=== PATIENT | female | born 2000 | race Caucasian/White ===

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

== ENCOUNTER 2021-08-08 19:23 | Emergency (ER) | payer BC, MEDICAID, OTHER ==
[2021-08-08] MEDS ORDERED: IBUPROFEN 800 MG TABLET PO STA (20:28)
--- NOTE | 2021-08-08 20:29 | ED Physician Documentation ---
PD HPI LOWER EXT INJURY - Stated complaint Stated Complaint: RT ANKLE PX - Chief complaint Chief Complaint: Trauma Ext - History obtained from History obtained from: Patient (Fell down 2 stairs and heard a pop in the lateral right ankle and is now unable to walk. No other injuries.) Review of Systems Constitutional: reports: Reviewed and negative Ears: reports: Reviewed and negative Nose: reports: Reviewed and negative Throat: reports: Reviewed and negative Cardiac: reports: Reviewed and negative PD PAST MEDICAL HISTORY - Past Medical History Respiratory: Asthma, Pneumonia Neuro: Migraines - Past Surgical History Past Surgical History: Yes HEENT: Tonsil/Adenoidectomy - Present Medications Home Medications: Ambulatory Orders Medication Instructions Recorded Confirmed Bcp 1 tab PO DAILY 11/17/13 10/29/18 Butalb/Acetaminophen/Caffeine 1 - 2 each PO Q6HR PRN #14 capsule 10/29/18 [Fioricet 50-300-40 mg Capsule] Nitrofurantoin Monohyd/M-Cryst 100 mg PO BID #10 capsule 11/23/19 [Macrobid 100 mg Capsule] Phenazopyridine HCl [Pyridium] 200 mg PO TID PRN #6 tablet 11/23/19 - Allergies Allergies/Adverse Reactions: Allergies Allergy/AdvReac Type Severity Reaction Status Date / Time No Known Drug Allergies Allergy Verified 08/08/21 19:26 - Social History Does the pt smoke?: No Smoking Status: Never smoker Does the pt drink ETOH?: No Does the pt have substance abuse?: No - Immunizations Immunizations are current?: Yes - POLST Patient has POLST: No PD ED PE NORMAL - Vitals Vital signs reviewed: Yes - General General: Alert and oriented X 3, No acute distress - Extremities Extremities: Other (Tender over both malleoli of the right ankle, right worse than left without deformity. No foot or proximal fibular tenderness.) - Neuro Neuro: Alert and oriented X 3, Normal speech Results - Vitals Vitals: Vital Signs - 24 hr 08/08/21 08/08/21 19:26 21:11 Temperature 36.5 C 37.5 C Heart Rate 99 92 Respiratory 16 19 Rate Blood Pressure 150/90 H 131/84 H O2 Saturation 100 100 Oxygen O2 Source Room air - Rads (name of study) Three-view x-ray of the right ankle is unremarkable Radiology: EMP read contemporaneously Departure - Departure Disposition: Home, Self Care Clinical Impression: Right ankle sprain Qualifiers: Encounter type: initial encounter Involved ligament of ankle: anterior talofibular ligament Qualified Code(s): S93.491A - Sprain of other ligament of right ankle, initial encounter Condition: Good Record reviewed to determine appropriate education?: Yes Instructions: ED Sprain Ankle W X Ray Comments: Tylenol and/or ibuprofen as needed for pain. Keep it elevated. Return for new or worsening symptoms. Follow-up with your doctor in a week if not improving. Discharge Date/Time: 08/08/21 21:12
--- NOTE | 2021-08-08 20:40 | XRAY Report ---
PROCEDURE: Ankle 3 View RT INDICATIONS: Trauma TECHNIQUE: 3 views of the ankle were acquired. COMPARISON: None. FINDINGS: Bones: No fractures or dislocations. Ankle mortise is normally aligned. No suspicious bony lesions . Soft tissues: There is periarticular soft tissue swelling laterally. No tibiotalar joint effusion. Achilles tendon appears normal. IMPRESSION: 1. No fracture or dislocation. Reviewed by: Justice Henderson MD on 08/08/2021 8:38 PM PST Approved by: Justice Henderson MD on 08/08/2021 8:38 PM PST Station ID: [id number]
[2021-08-08 21:12] VITALS: BP 131/84
== END 2021-08-08 21:12 | disposition home or self-care (01) ==
LOC: ED 19:23
DX: S93.491A Sprain of other ligament of right ankle, initial encounter (principal); W10.9XXA Fall (on) (from) unspecified stairs and steps, initial encounter
CPT/HCPCS: 73610; 99282; 99283; A9270

== ENCOUNTER 2022-07-09 17:35 | Emergency (ER) | payer MEDICAID ==
[2022-07-09 17:42] VITALS: BP 144/74
--- NOTE | 2022-07-09 19:47 | ED Physician Documentation ---
PD HPI SKIN - Stated complaint Stated Complaint: ITCHY SKIN - Chief complaint Chief Complaint: Allergic Rx - History obtained from History obtained from: Patient - History of Present Illness Timing - duration: Weeks (few weeks) Timing - details: Gradual onset, Still present, Constant Pain level max: 0 Pain level now: 0 Location: Bodywide Quality / character: Itchy Improved by: Benadryl Associated symptoms: No: Fever, Myalgias, Joint pain, Headache, Facial swelling, Dyspnea, Abd pain, N/V/D, Urinary sx Contributing factors: No: Exposed to medication, Exposed to food, Exposed to soap / lotion, Exposed to Poison denise/oak, Insect bite /sting, Recent illness Similar symptoms before: No diagnosis Recently seen: Not recently seen Review of Systems Skin: reports: Rash PD PAST MEDICAL HISTORY - Past Medical History Respiratory: Asthma, Pneumonia Neuro: Migraines - Past Surgical History Past Surgical History: Yes HEENT: Tonsil/Adenoidectomy - Present Medications Home Medications: Ambulatory Orders Medication Instructions Recorded Confirmed Bcp 1 tab PO DAILY 11/17/13 10/29/18 Butalb/Acetaminophen/Caffeine 1 - 2 each PO Q6HR PRN #14 capsule 10/29/18 [Fioricet 50-300-40 mg Capsule] Nitrofurantoin Monohyd/M-Cryst 100 mg PO BID #10 capsule 11/23/19 [Macrobid 100 mg Capsule] Phenazopyridine HCl [Pyridium] 200 mg PO TID PRN #6 tablet 11/23/19 Triamcinolone 0.1% Oint 1 applic TOP BID #80 gm 07/09/22 - Allergies Allergies/Adverse Reactions: Allergies Allergy/AdvReac Type Severity Reaction Status Date / Time No Known Drug Allergies Allergy Verified 07/09/22 17:42 - Social History Does the pt smoke?: No Smoking Status: Never smoker Does the pt drink ETOH?: No Does the pt have substance abuse?: No - Immunizations Immunizations are current?: Yes - POLST Patient has POLST: No PD ED PE NORMAL - Vitals Vital signs reviewed: Yes - General General: Alert and oriented X 3, No acute distress, Well developed/nourished - HEENT HEENT: Atraumatic, PERRL, EOMI - Neck Neck: Supple, no meningeal sign - Derm Derm: Normal color, Warm and dry, Other (fine miliary rash evident on shoulders and abdomen with mild excoriations) Results - Vitals Vitals: Vital Signs - 24 hr 07/09/22 17:39 Temperature 36.2 C L Heart Rate 108 H Respiratory 19 Rate Blood Pressure 144/74 H O2 Saturation 98 Oxygen O2 Source Room air PD Medical Decision Making - ED course ED course: 22yF p/w mild rash, likely contact dermatitis. also with scaling to ears c/w ectopic dermatitis. steroid sent to pharmacy. plan to f/u derm and allergy/immunology. return precuations given. Departure - Departure Disposition: Home, Self Care Clinical Impression: Skin irritation Condition: Good Instructions: ED Dermatitis Non Specific Rash Follow-Up: PRITESH PEÑA MD [Physician No Access] - Himanshu Alexander MD [Physician No Access] - Rebecca Walton PA-C [Provider Admit Priv/Credential] - Prescriptions: Triamcinolone 0.1% Oint 1 applic TOP BID #80 gm Comments: You were seen in the emergency department for full body itching. Please apply steroid cream no more than twice daily and only apply to the face once daily for 5 days. Return to the emergency department if new or worsening symptoms or other concerns. Follow-up with the primary care provider and with dermatology or allergy and immunology. Prescription was sent to [facility] electronically. Discharge Date/Time: 07/09/22 20:16
== END 2022-07-09 20:16 | disposition home or self-care (01) ==
LOC: ED 17:35
DX: L29.9 Pruritus, unspecified (principal); R21 Rash and other nonspecific skin eruption
CPT/HCPCS: 99282

== ENCOUNTER 2022-07-24 08:00 | Outpatient (CLI) | payer MEDICAID ==
[2022-07-24 17:41] LABS: BASOPHILS # (AUTO) 0.1 10^3/uL (0.0-0.1); BASOPHILS % (AUTO) 0.6 %; EOSINOPHILS # (AUTO) 0.2 10^3/uL (0.0-0.7); EOSINOPHILS % (AUTO) 2.3 %; HCT - HEMATOCRIT 45.4 % (37.0-47.0); HGB - HEMOGLOBIN 14.5 g/dL (12.0-16.0); LYMPHOCYTES # (AUTO) 2.9 10^3/uL (1.5-3.5); LYMPHOCYTES % (AUTO) 29.3 %; MEAN CORPUSCULAR HGB CONC 31.9 g/dL (32.0-36.0); MEAN CORPUSCULAR VOLUME 90.8 fL (81.0-99.0); MEAN PLATELET VOLUME 11.1 fL (7.9-10.8); MONOCYTES # (AUTO) 0.8 10^3/uL (0.0-1.0); MONOCYTES % (AUTO) 7.9 %; NEUTROPHILS % (AUTO) 59.5 %; PLT - PLATELET COUNT 308 10^3/uL (130-450); RED CELL DISTRIBUTION WIDTH 12.4 % (12.0-15.0); WHITE BLOOD COUNT 10.1 x10^3/uL (4.8-10.8)
== END 2022-07-24 23:59 | disposition home or self-care (01) ==
LOC: LAB.N 08:00
PROVIDERS: ATTEND Physician Assistant
DX: L29.9 Pruritus, unspecified (principal)
CPT/HCPCS: 36415; 85025

== ENCOUNTER 2023-02-27 19:44 | Emergency (ER) | payer MEDICAID ==
[2023-02-27 20:13] VITALS: O2SAT 99
[2023-02-27] MEDS ORDERED: LORazepam 1 MG TABLET PO STA (20:38)
--- NOTE | 2023-02-27 20:40 | ED Physician Documentation ---
History of Present Illness - Stated complaint Stated Complaint: CHEST PX,SOA - Chief complaint Chief Complaint: MHE - Additonal information Additional information: 22-year-old female presents emergency department for evaluation of anxiety, pa lpitations and chest discomfort. Patient states that she is having a lot of arguments with her baby's father and he is making her life difficult. They do not live together. She has been having increased stress and palpitations due to this. She is usually able to calm herself down by going to a calm quiet room but was unable to get the racing thoughts and palpitations to zakia today. She has called [facility] and has a screening appointment upcoming. She takes no prescribed medications. Denies pleuritic chest pain. Pain does not radiate. No perioral numbness or tingling. No recent travel, anticoagulation. She is not on any hormones. Review of Systems Constitutional: denies: Fever, Chills Throat: reports: Reviewed and negative Cardiac: reports: Chest pain / pressure, Palpitations Respiratory: reports: Reviewed and negative GI: reports: Reviewed and negative : reports: Reviewed and negative PD PAST MEDICAL HISTORY - Past Medical History Respiratory: Asthma, Pneumonia Neuro: Migraines - Past Surgical History Past Surgical History: Yes HEENT: Tonsil/Adenoidectomy - Present Medications Home Medications: Ambulatory Orders Medication Instructions Recorded Confirmed hydrOXYzine PAMOATE [Vistaril] 25 mg PO TID PRN #20 cap 02/27/23 - Allergies Allergies/Adverse Reactions: Allergies Allergy/AdvReac Type Severity Reaction Status Date / Time No Known Drug Allergies Allergy Verified 02/27/23 19:54 - Social History Does the pt smoke?: No Smoking Status: Never smoker Does the pt drink ETOH?: No Does the pt have substance abuse?: No - Immunizations Immunizations are current?: Yes - POLST Patient has POLST: No PD ED PE NORMAL - General General: Alert and oriented X 3, No acute distress - HEENT HEENT: Atraumatic - Neck Neck: Supple, no meningeal sign - Cardiac Cardiac: RRR, No murmur, Other (Sinus rhythm on the monitor heart rate of 95) - Respiratory Respiratory: No respiratory distress, Clear bilaterally - Abdomen Abdomen: Normal bowel sounds, Soft - Back Back: No CVA TTP - Derm Derm: Normal color, Warm and dry - Extremities Extremities: No deformity - Neuro Neuro: Alert and oriented 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 Relevant findings are: Rate: Rate (enter#) (100) Rhythm: NSR [place]: Normal Intervals: Normal [place] QRS: Normal Ischemia: Normal ST segments Compare to prior EKG: Old EKG unavailable Computer interpretation: Agree with computer - Labs Labs: Laboratory Tests 02/27/23 02/27/23 02/27/23 20:32 20:32 20:32 WBC 5.4 RBC 4.57 Hgb 13.1 Hct 41.3 MCV 90.4 MCH 28.7 MCHC 31.7 L RDW 13.1 Plt Count 228 MPV 10.5 Neut # (Auto) 3.0 Lymph # (Auto) 1.4 L [place] # (Auto) 0.7 Eos # (Auto) 0.1 Baso # (Auto) 0.0 Absolute Nucleated RBC 0.00 Nucleated RBC % 0.0 Sodium 140 Potassium 3.6 Chloride 108 Carbon Dioxide 27 Anion Gap 5.0 L BUN 14 Creatinine 0.7 Estimated GFR (MDRD) 105 Glucose 100 Calcium 9.1 Total Bilirubin 0.3 AST 13 ALT 13 Alkaline Phosphatase 34 L Troponin I High Sens < 2.3 L Total Protein 6.7 Albumin 4.2 Globulin 2.5 Albumin/Globulin Ratio 1.7 Lipase 14 Serum HCG, Qual NEGATIVE - Rads (name of study) cxr Relevant Findings:: EMP independent interpretation of test (No findings of pneumonia, pneumothorax pleural effusion. Unremarkable cardiopulmonary exam) PD Medical Decision Making - ED course Complexity details: reviewed results, re-evaluated patient, considered differential, d/w patient ED course: 22-year-old female presents emergency department for evaluation of anxiety, palpitations and chest pain. She does report that she was having an argument with her baby's dad when she began to have a panic attack that she could not calm. On presentation to the emergency department much of the symptoms had d issipated. She was given a single dose of Ativan orally which markedly improved the anxiety and palpitations. Her EKG while on the monitor showed sinus rhythm without tachyarrhythmia. Her twelve-lead was without ischemic findings. CBC, electrolytes and troponin were all negative. ACS is essentially ruled out given age and history. She is PERC negative I have low suspicion for PE. Chest x-ray per my interpretation was without findings of pneumothorax, pneumonia or pleural effusion. On reevaluation the patient is feeling markedly better. She is scheduled to follow-up with [facility] for a screening evaluation. We also discussed talk therapy. Limited prescription for hydroxyzine is being sent to the patient's preferred pharmacy. The usual emergent return precautions for worsen ing symptoms was discussed. Departure - Departure Disposition: Home, Self Care Clinical Impression: Panic attack, Palpitations Chest pain Qualifiers: Chest pain type: unspecified Qualified Code(s): R07.9 - Chest pain, unspecified Condition: Stable Record reviewed to determine appropriate education?: Yes Instructions: ED Panic Attack Prescriptions: hydrOXYzine PAMOATE [Vistaril] 25 mg PO TID PRN #20 cap PRN Reason: Anxiety Comments: Ela you are seen today in the emergency department for chest pain palpitations and anxiety. It sounds like he likely had a panic attack at home. Your labs today were essentially normal. Your EKG was also normal. Chest x-ray did not show any signs of pneumonia or a collapsed lung. I recommend that you continue your follow-up with [facility]. Talk therapy is very effective at helping manage anxiety and stress. Medications can also be helpful. For acute anxiety I have prescribed some hydroxyzine. This is a medication that can be used 2-3 times a day as needed. Use it cautiously at first as it may make you sleepy. Continue follow-up with your primary care doctor. Return to the ER for any new or worsening symptoms. Forms: PCP List
[2023-02-27 20:50] LABS: BASOPHILS % (AUTO) 0.4 %; EOSINOPHILS # (AUTO) 0.1 10^3/uL (0.0-0.7); EOSINOPHILS % (AUTO) 2.6 %; HCT - HEMATOCRIT 41.3 % (37.0-47.0); HGB - HEMOGLOBIN 13.1 g/dL (12.0-16.0); LYMPHOCYTES # (AUTO) 1.4 10^3/uL (1.5-3.5); MEAN CORPUSCULAR HEMOGLOBIN 28.7 pg (27.0-31.0); MEAN CORPUSCULAR HGB CONC 31.7 g/dL (32.0-36.0); MEAN CORPUSCULAR VOLUME 90.4 fL (81.0-99.0); MEAN PLATELET VOLUME 10.5 fL (7.9-10.8); MONOCYTES # (AUTO) 0.7 10^3/uL (0.0-1.0); MONOCYTES % (AUTO) 13.8 %; NEUTROPHILS % (AUTO) 56.8 %; PLT - PLATELET COUNT 228 10^3/uL (130-450); RED BLOOD COUNT 4.57 10^6/uL (4.20-5.40); RED CELL DISTRIBUTION WIDTH 13.1 % (12.0-15.0); WHITE BLOOD COUNT 5.4 x10^3/uL (4.8-10.8)
[2023-02-27 21:10] LABS: ALBUMIN 4.2 g/dL (3.2-5.5); ALBUMIN/GLOBULIN RATIO 1.7 (1.0-2.2); ALKALINE PHOSPHATASE 34 IU/L (42-121); ALT ALANINE AMINOTRANSFERASE 13 IU/L (10-60); AST ASPARTATE AMINOTRANSFERASE 13 IU/L (10-42); BILIRUBIN,TOTAL 0.3 mg/dL (0.2-1.0); BUN - BLOOD UREA NITROGEN 14 mg/dL (6-20); CALCIUM 9.1 mg/dL (8.5-10.3); CARBON DIOXIDE - CO2 27 mmol/L (21-32); CHLORIDE 108 mmol/L (101-111); CREATININE 0.7 mg/dL (0.6-1.3); GFR - MDRD 105 (>89); GLUCOSE 100 mg/dL (74-104); LIPASE 14 U/L (11-82); POTASSIUM 3.6 mmol/L (3.5-4.5); SODIUM 140 mmol/L (135-145); TOTAL PROTEIN 6.7 g/dL (6.4-8.9)
[2023-02-27 21:14] LABS: TROPONIN I HIGH SENSITIVITY < 2.3 ng/L (2.3-14.8)
[2023-02-27 21:15] LABS: HCG,QUALITATIVE BLOOD NEGATIVE
[2023-02-27 21:48] VITALS: BP 125/80
--- NOTE | 2023-02-27 22:36 | XRAY Report ---
PROCEDURE: Chest 1 View X-Ray INDICATIONS: chest pain TECHNIQUE: One view of the chest was acquired. COMPARISON: 09/28/2016. FINDINGS: Surgical changes and devices: None. Lungs and pleura: No pleural effusions or pneumothorax. Lungs are clear. Mediastinum: Mediastinal contours appear normal. Heart size is normal. Bones and chest wall: No suspicious bony lesions. Overlying soft tissues appear unremarkable. IMPRESSION: No acute cardiopulmonary disease. Reviewed by: Justice Mora MD on 02/27/2023 10:34 PM PDT Approved by: Justice Mora MD on 02/27/2023 10:34 PM PDT Station ID: [id number]
== END 2023-02-27 21:47 | disposition home or self-care (01) ==
LOC: ED 19:44
DX: R00.2 Palpitations (principal); F41.0 Panic disorder [episodic paroxysmal anxiety]; R07.9 Chest pain, unspecified
CPT/HCPCS: 36415; 71045; 80053; 83690; 84484; 84703; 85025; 93005; 99284; J8499

== ENCOUNTER 2023-05-17 08:00 | Outpatient (CLI) | payer MEDICAID ==
[2023-05-17 15:56] LABS: BILIRUBIN,URINE NEGATIVE (NEGATIVE); GLUCOSE, URINE (UA) NEGATIVE (NEGATIVE); KETONES,URINE (UA) NEGATIVE (NEGATIVE); LEUKOCYTE ESTERASE, URINE NEGATIVE (NEGATIVE); NITRITE,URINE NEGATIVE (NEGATIVE); OCCULT BLOOD,URINE NEGATIVE (NEGATIVE); PH,URINE 6.5 PH (5.0-7.5); PROTEIN,URINE NEGATIVE (NEGATIVE); UROBILINOGEN,URINE 0.2 (NORMAL) E.U./dL (NORMAL)
[2023-05-17 16:19] LABS: BACTERIA,URINE None Seen /HPF (None Seen); CLARITY,URINE CLEAR (CLEAR); RBC,URINE None Seen /HPF (0-5); SQUAMOUS EPITHELIAL CELL,UR RARE Squamous (<= Few); WBC,URINE 0-3 /HPF (0-5)
== END 2023-05-17 23:59 | disposition home or self-care (01) ==
LOC: LAB.WC 08:00
PROVIDERS: ATTEND Nurse Practitioner
DX: Z34.80 Encounter for supervision of other normal pregnancy, unspecified trimester (principal)
CPT/HCPCS: 81001; 87086

== ENCOUNTER 2023-05-31 10:44 | Outpatient (CLI) | payer MEDICAID ==
--- NOTE | 2023-05-31 13:05 | Ultrasound Report ---
PROCEDURE: OB First Trimester INDICATIONS: POSITIVE TEST OUTSIDE/PRIOR DATING DATA: Last menstrual period (LMP): 04/04/2023. LMP-based estimated date of delivery ([place]): 01/09/2024. First dating scan (date and location): 05/31/2023. Estimated date of delivery ([place]) from first dating scan: 01/16/2024. TECHNIQUE: Real-time scanning was performed of the fetus and maternal pelvic organs, with image documentation. COMPARISON: None. FINDINGS: Intrauterine gestational sac present. Embryo: Yolk sac and pole are seen. Met[place]ius-rump length is 1.1 cm, consistent with an estimated gestational age of 7 weeks 1 day Heart rate: 148 bpm. Other: No perigestational fluid collection. Measurement variability in dating: +/- 4 weeks by LMP, +/- 7 days by mean sac diameter (use before 6 weeks gestation if crown-rump length not able to be measured), +/- 5 days by crown-rump length (6-12 weeks gestation). Maternal organs: Ovaries appear within normal limits. Left ovarian corpus luteum cyst is noted. IMPRESSION: Single live intrauterine with estimated gestational age of 7 weeks 1 day, corresponding to an ultrasound [place] of 01/16/2024. Reviewed by: Lenny De La Cruz MD on 05/31/2023 1:04 PM PST Approved by: Lenny De La Cruz MD on 05/31/2023 1:04 PM PST Station ID: [id number]
== END 2023-05-31 10:45 | disposition home or self-care (01) ==
LOC: DI 10:44
PROVIDERS: ATTEND Nurse Practitioner
DX: Z34.81 Encounter for supervision of other normal pregnancy, first trimester (principal)

== ENCOUNTER 2023-06-14 08:00 | Outpatient (CLI) | payer MEDICAID ==
[2023-06-14 20:16] LABS: CHLAMYDIA TRACHOMATIS DNA NEGATIVE (NEGATIVE); NEISSERIA GONORRHOEAE DNA NEGATIVE (NEGATIVE); TRICHOMONAS VAGINALIS DNA NEGATIVE (NEGATIVE)
== END 2023-06-14 23:59 | disposition home or self-care (01) ==
LOC: LAB.WC 08:00
PROVIDERS: ATTEND Obstetrics & Gynecology
DX: Z11.3 Encounter for screening for infections with a predominantly sexual mode of transmission (principal)
CPT/HCPCS: 87491; 87591; 87661

== ENCOUNTER 2023-06-15 08:25 | Outpatient (CLI) | payer MEDICAID ==
[2023-06-15 09:58] LABS: BASOPHILS % (AUTO) 0.3 %; EOSINOPHILS # (AUTO) 0.1 10^3/uL (0.0-0.7); EOSINOPHILS % (AUTO) 0.9 %; HCT - HEMATOCRIT 40.2 % (37.0-47.0); LYMPHOCYTES # (AUTO) 2.2 10^3/uL (1.5-3.5); LYMPHOCYTES % (AUTO) 18.1 %; MEAN CORPUSCULAR HEMOGLOBIN 29.1 pg (27.0-31.0); MEAN CORPUSCULAR HGB CONC 32.3 g/dL (32.0-36.0); MEAN CORPUSCULAR VOLUME 90.1 fL (81.0-99.0); MEAN PLATELET VOLUME 10.4 fL (7.9-10.8); MONOCYTES # (AUTO) 0.7 10^3/uL (0.0-1.0); MONOCYTES % (AUTO) 5.6 %; NEUTROPHILS # (AUTO) 8.9 10^3/uL (1.5-6.6); NEUTROPHILS % (AUTO) 74.8 %; PLT - PLATELET COUNT 278 10^3/uL (130-450); RED BLOOD COUNT 4.46 10^6/uL (4.20-5.40); RED CELL DISTRIBUTION WIDTH 12.5 % (12.0-15.0); WHITE BLOOD COUNT 11.9 x10^3/uL (4.8-10.8)
[2023-06-16 06:09] LABS: HBsAG SCREEN Negative (Negative)
[2023-06-16 07:09] LABS: HCV AB Non Reactive (Non Reactive); HIV SCREEN 4TH GENERATION Non Reactive (Non Reactive)
[2023-06-16 08:09] LABS: RPR Non Reactive (Non Reactive)
[2023-06-16 09:09] LABS: VARICELLA-ZOSTER AB IGG 627 index (Immune >165)
== END 2023-06-15 08:26 | disposition home or self-care (01) ==
LOC: LAB 08:25
PROVIDERS: ATTEND Nurse Practitioner
DX: Z34.80 Encounter for supervision of other normal pregnancy, unspecified trimester (principal); Z36.89 Encounter for other specified antenatal screening; Z86.32 Personal history of gestational diabetes
CPT/HCPCS: 36415; 82950; 85025; 86592; 86762; 86787; 86803; 86850; 86900; 86901; 87340; 87389

== ENCOUNTER 2023-06-29 07:51 | Outpatient (CLI) | payer MEDICAID ==
[2023-06-29 08:23] LABS: GTT GLUCOSE,FASTING 108 mg/dL (74-109)
== END 2023-06-29 07:52 | disposition home or self-care (01) ==
LOC: LAB 07:51
PROVIDERS: ATTEND Obstetrics & Gynecology
DX: R73.02 Impaired glucose tolerance (oral) (principal)
CPT/HCPCS: 36415; 82951; 82952

== ENCOUNTER 2023-08-10 09:31 | Outpatient (CLI) | payer MEDICAID ==
[2023-08-10 10:15] LABS: ESTIMATED AVERAGE GLUCOSE 100 mg/dL (70-100); HEMOGLOBIN A1c% 5.1 % (4.27-6.07)
== END 2023-08-10 09:32 | disposition home or self-care (01) ==
LOC: LAB 09:31
PROVIDERS: ATTEND Obstetrics & Gynecology
DX: Z86.32 Personal history of gestational diabetes (principal); Z82.79 Family history of other congenital malformations, deformations and chromosomal abnormalities
CPT/HCPCS: 36415; 83036

== ENCOUNTER 2023-08-27 18:56 | Emergency (ER) | payer MEDICAID ==
--- NOTE | 2023-08-27 19:18 | ED Physician Documentation ---
History of Present Illness - Stated complaint Stated Complaint: DIZZY/HIGH HR - Chief complaint Chief Complaint: Cardiac - History obtained from History obtained from: Patient - Additonal information Additional information: G2, P1 at 19 weeks gestation on metformin for gestational diabetes developed rapid painless palpitations earlier today and lightheadedness with some fatigue. No associated chest pain or trouble breathing. She did drink some caffeine but not excessively she does not think. PD PAST MEDICAL HISTORY - Past Medical History Past Medical History: Yes Respiratory: Asthma, Pneumonia Neuro: Migraines Other Past Medical History: preeclampsia and GDM - Past Surgical History Past Surgical History: Yes HEENT: Tonsil/Adenoidectomy - Present Medications Home Medications: Ambulatory Orders Medication Instructions Recorded Confirmed metFORMIN [Glucophage] 500 mg PO BIDWM 08/27/23 08/27/23 - Allergies Allergies/Adverse Reactions: Allergies Allergy/AdvReac Type Severity Reaction Status Date / Time No Known Drug Allergies Allergy Verified 08/27/23 19:07 - Social History Does the pt smoke?: No Smoking Status: Never smoker Does the pt drink ETOH?: No Does the pt have substance abuse?: No - Immunizations Immunizations are current?: Yes - POLST Patient has POLST: No PD ED PE NORMAL - Vitals Vital signs reviewed: Yes - General General: Alert and oriented X 3, No acute distress - Cardiac Cardiac: RRR, No murmur - Respiratory Respiratory: No respiratory distress - Abdomen Abdomen: Normal bowel sounds, Soft, Non tender, Other (Gravid uterus, bedside ultrasound showing single live IUP with heart rate of 155 and positive motion.) - Extremities Extremities: No edema, No calf tenderness / cord - Neuro Neuro: Alert and oriented X 3, Normal speech Results - Vitals Vitals: Vital Signs - 24 hr 08/27/23 08/27/23 08/27/23 19:02 19:35 20:04 Temperature 36 C L Heart Rate 104 H 87 79 Respiratory 16 18 19 Rate Blood Pressure 133/80 H 114/56 L 114/54 L O2 Saturation 98 98 97 Oxygen O2 Source Room air - EKG (time done) 1909 EKG releavant findings:: EKG personally interpreted by author of this note. Relevant findings are: Rate: Rate (enter#) (92) Rhythm: NSR [place]: Normal Intervals: Normal [place] QRS: Normal Ischemia: Normal ST segments - Labs Labs: Laboratory Tests 08/27/23 08/27/23 08/27/23 19:30 19:30 19:30 WBC 13.7 H RBC 4.18 L Hgb 12.1 Hct 37.2 MCV 89.0 MCH 28.9 MCHC 32.5 RDW 12.4 Plt Count 278 MPV 10.8 Neut # (Auto) 9.8 H Lymph # (Auto) 2.9 [place] # (Auto) 0.8 Eos # (Auto) 0.2 Baso # (Auto) 0.0 Absolute Nucleated RBC 0.00 Nucleated RBC % 0.0 VBG pH 7.413 H VBG pCO2 38.2 L VBG pO2 58.0 H VBG HCO3 23.8 VBG Total CO2 25.0 VBG O2 Saturation 89.5 H VBG Base Excess -0.5 Sodium 137 Potassium 3.4 L Chloride 105 Carbon Dioxide 23 Anion Gap 9.0 BUN 9 Creatinine 0.6 Estimated GFR (MDRD) 124 Glucose 99 Calcium 9.8 Magnesium 1.6 L Total Bilirubin 0.3 AST 13 ALT 13 Alkaline Phosphatase 26 L Total Protein 6.5 Albumin 3.9 Globulin 2.6 Albumin/Globulin Ratio 1.5 Urine Color Urine Clarity Urine pH Ur Specific [place] Urine Protein Urine Glucose (UA) Urine Ketones Urine Occult Blood Urine Nitrite Urine Bilirubin Urine Urobilinogen Ur Leukocyte Esterase Ur Microscopic Review Urine Culture Comments Serum Ketones SMALL H 08/27/23 20:02 WBC RBC Hgb Hct MCV MCH MCHC RDW Plt Count MPV Neut # (Auto) Lymph # (Auto) [place] # (Auto) Eos # (Auto) Baso # (Auto) Absolute Nucleated RBC Nucleated RBC % VBG pH VBG pCO2 VBG pO2 VBG HCO3 VBG Total CO2 VBG O2 Saturation VBG Base Excess Sodium Potassium Chloride Carbon Dioxide Anion Gap BUN Creatinine Estimated GFR (MDRD) Glucose Calcium Magnesium Total Bilirubin AST ALT Alkaline Phosphatase Total Protein Albumin Globulin Albumin/Globulin Ratio Urine Color LIGHT YELLOW Urine Clarity CLEAR Urine pH 7.0 Ur Specific [place] <=1.005 Urine Protein NEGATIVE Urine Glucose (UA) NEGATIVE Urine Ketones NEGATIVE Urine Occult Blood NEGATIVE Urine Nitrite NEGATIVE Urine Bilirubin NEGATIVE Urine Urobilinogen 0.2 (NORMAL) Ur Leukocyte Esterase NEGATIVE Ur Microscopic Review NOT INDICATED Urine Culture Comments NOT INDICATED Serum Ketones PD Medical Decision Making - ED course ED course: 23-year-old G2, P1 at 19 weeks gestation presents with palpitations. No chest pain. Workup in the emergency department demonstrates a CBC with leukocytosis which is normal for , unremarkable venous gas, CMP showing mild hypokalemia and hypomagnesemia and she was given IV magnesium here. Urinalysis was unremarkable. She does have small serum ketones consistent with dehydration. She was feeling better after administration of IV fluids and IV magnesium. EKG was normal. Departure - Departure Disposition: 01 Home, Self Care Clinical Impression: Palpitations, Dehydration, 19 weeks gestation of Condition: Good Record reviewed to determine appropriate education?: Yes Instructions: ED Dehydration Comments: During plenty of fluids and try to decrease caffeine use if you are using it excessively. Follow-up with your OB in a week for reevaluation. Return for new or worsening symptoms. Forms: PCP List
[2023-08-27 19:35] LABS: BASOPHILS % (AUTO) 0.2 %; EOSINOPHILS # (AUTO) 0.2 10^3/uL (0.0-0.7); EOSINOPHILS % (AUTO) 1.3 %; HCT - HEMATOCRIT 37.2 % (37.0-47.0); HGB - HEMOGLOBIN 12.1 g/dL (12.0-16.0); LYMPHOCYTES # (AUTO) 2.9 10^3/uL (1.5-3.5); LYMPHOCYTES % (AUTO) 20.9 %; MEAN CORPUSCULAR HEMOGLOBIN 28.9 pg (27.0-31.0); MEAN CORPUSCULAR HGB CONC 32.5 g/dL (32.0-36.0); MEAN PLATELET VOLUME 10.8 fL (7.9-10.8); MONOCYTES # (AUTO) 0.8 10^3/uL (0.0-1.0); MONOCYTES % (AUTO) 5.7 %; NEUTROPHILS # (AUTO) 9.8 10^3/uL (1.5-6.6); NEUTROPHILS % (AUTO) 71.5 %; PLT - PLATELET COUNT 278 10^3/uL (130-450); RED BLOOD COUNT 4.18 10^6/uL (4.20-5.40); RED CELL DISTRIBUTION WIDTH 12.4 % (12.0-15.0); WHITE BLOOD COUNT 13.7 x10^3/uL (4.8-10.8)
[2023-08-27] MEDS: SODIUM CHLORIDE 0.9% 1,000 ML IV STA (19:35)
[2023-08-27 19:38] LABS: VBG BASE EXCESS -0.5 mmol/L (-2 - +2); VBG HCO3 23.8 mmol/L (23-28); VBG OXYGEN SATURATION 89.5 % (60-80); VBG PCO2 38.2 mmHg (41-51); VBG PH 7.413 (7.31-7.41)
[2023-08-27 19:50] LABS: KETONES, SERUM (ACETEST) SMALL (NEGATIVE)
[2023-08-27 19:52] LABS: ALBUMIN 3.9 g/dL (3.2-5.5); ALBUMIN/GLOBULIN RATIO 1.5 (1.0-2.2); ALKALINE PHOSPHATASE 26 IU/L (42-121); ALT ALANINE AMINOTRANSFERASE 13 IU/L (10-60); AST ASPARTATE AMINOTRANSFERASE 13 IU/L (10-42); BILIRUBIN,TOTAL 0.3 mg/dL (0.2-1.0); BUN - BLOOD UREA NITROGEN 9 mg/dL (6-20); CALCIUM 9.8 mg/dL (8.5-10.3); CARBON DIOXIDE - CO2 23 mmol/L (21-32); CHLORIDE 105 mmol/L (101-111); CREATININE 0.6 mg/dL (0.6-1.3); GFR - MDRD 124 (>89); GLUCOSE 99 mg/dL (74-104); MAGNESIUM 1.6 mg/dL (1.7-2.3); POTASSIUM 3.4 mmol/L (3.5-4.5); SODIUM 137 mmol/L (135-145); TOTAL PROTEIN 6.5 g/dL (6.4-8.9)
[2023-08-27] MEDS: MAGNESIUM SULFATE 2 GRAM 2 GM/50 ML BAG IV ONE (20:17)
[2023-08-27 20:44] LABS: BILIRUBIN,URINE NEGATIVE (NEGATIVE); GLUCOSE, URINE (UA) NEGATIVE (NEGATIVE); KETONES,URINE (UA) NEGATIVE (NEGATIVE); LEUKOCYTE ESTERASE, URINE NEGATIVE (NEGATIVE); NITRITE,URINE NEGATIVE (NEGATIVE); OCCULT BLOOD,URINE NEGATIVE (NEGATIVE); PROTEIN,URINE NEGATIVE (NEGATIVE); UROBILINOGEN,URINE 0.2 (NORMAL) E.U./dL (NORMAL)
[2023-08-27 20:45] LABS: CLARITY,URINE CLEAR (CLEAR)
[2023-08-27 21:16] VITALS: BP 109/69
[2023-08-27 21:52] VITALS: O2SAT 97
== END 2023-08-27 21:51 | disposition home or self-care (01) ==
LOC: ED 18:56
DX: O26.892 Other specified pregnancy related conditions, second trimester (principal); Z3A.19 19 weeks gestation of pregnancy; R00.2 Palpitations; E86.0 Dehydration; O24.415 Gestational diabetes mellitus in pregnancy, controlled by oral hypoglycemic drugs
CPT/HCPCS: 36415; 80053; 81001; 81003; 82009; 82803; 83735; 85025; 87086; 93005; 96365; 99284

== ENCOUNTER 2023-11-01 11:54 | Outpatient (CLI) | payer MEDICAID ==
[2023-11-01 12:14] LABS: BASOPHILS % (AUTO) 0.2 %; EOSINOPHILS # (AUTO) 0.2 10^3/uL (0.0-0.7); EOSINOPHILS % (AUTO) 1.3 %; HGB - HEMOGLOBIN 11.3 g/dL (12.0-16.0); LYMPHOCYTES # (AUTO) 2.3 10^3/uL (1.5-3.5); LYMPHOCYTES % (AUTO) 19.7 %; MEAN CORPUSCULAR HEMOGLOBIN 28.6 pg (27.0-31.0); MEAN CORPUSCULAR HGB CONC 32.3 g/dL (32.0-36.0); MEAN CORPUSCULAR VOLUME 88.6 fL (81.0-99.0); MEAN PLATELET VOLUME 10.8 fL (7.9-10.8); MONOCYTES # (AUTO) 0.7 10^3/uL (0.0-1.0); MONOCYTES % (AUTO) 6.2 %; NEUTROPHILS # (AUTO) 8.4 10^3/uL (1.5-6.6); NEUTROPHILS % (AUTO) 71.9 %; PLT - PLATELET COUNT 297 10^3/uL (130-450); RED BLOOD COUNT 3.95 10^6/uL (4.20-5.40); RED CELL DISTRIBUTION WIDTH 12.2 % (12.0-15.0); WHITE BLOOD COUNT 11.6 x10^3/uL (4.8-10.8)
[2023-11-01 12:31] LABS: ESTIMATED AVERAGE GLUCOSE 103 mg/dL (70-100); HEMOGLOBIN A1c% 5.2 % (4.27-6.07)
[2023-11-02 07:10] LABS: RPR Non Reactive (Non Reactive)
[2023-11-02 08:11] LABS: VITAMIN D 25-HYDROXY 27.7 ng/mL (30.0-100.0)
== END 2023-11-01 11:55 | disposition home or self-care (01) ==
LOC: LAB 11:54
PROVIDERS: ATTEND Obstetrics & Gynecology
DX: O24.112 Pre-existing type 2 diabetes mellitus, in pregnancy, second trimester (principal)
CPT/HCPCS: 36415; 82306; 82728; 83036; 85025; 86592

== ENCOUNTER 2023-11-28 14:54 | Outpatient (CLI) | payer MEDICAID ==
[2023-11-28 15:14] VITALS: BP 117/70
--- NOTE | 2023-11-28 15:39 | PROCEDURE REPORT ---
- HPI Diagnosis/Indication for NST: Pre- Diabetes Vital Signs Temperature 98.4 F 11/28/23 15:03 Heart Rate 117 H 11/28/23 15:03 Respiratory Rate 16 11/28/23 15:03 Blood Pressure 117/70 11/28/23 15:03 Temperature 98.4 F 11/28/23 15:03 Heart Rate 117 H 11/28/23 15:03 Respiratory Rate 16 11/28/23 15:03 Blood Pressure 117/70 11/28/23 15:03 O2 Saturation If not protocol: Oxygen Flow, liters/minute - NST Procedure Time: - 0808 - 3577 - Results and Plan Findings/Impression: Reactive, Cat 1 Plan: Follow up as scheduled.
== END 2023-11-28 15:39 | disposition home or self-care (01) ==
LOC: WFO 14:54 → FBP 14:56 → WFO 15:39
PROVIDERS: ATTEND Obstetrics & Gynecology
DX: O24.113 Pre-existing type 2 diabetes mellitus, in pregnancy, third trimester (principal); O09.93 Supervision of high risk pregnancy, unspecified, third trimester
CPT/HCPCS: 59025

== ENCOUNTER 2023-12-13 12:10 | Outpatient (CLI) | payer MEDICAID ==
--- NOTE | 2023-12-13 13:05 | PROVIDER PROGRESS NOTE ---
- HPI Current : Vital Signs Temperature 98.2 F 12/13/23 12:25 Temperature 98.2 F 12/13/23 12:25 Heart Rate Respiratory Rate Blood Pressure O2 Saturation If not protocol: Oxygen Flow, liters/minute - Exam Gen: NAD, appears comfortable. No contractions noted during our conversation. Abd: gravid, non tender SVE: declined by patient - Procedures OB Procedure Performed: NST Diagnosis/Indication for NST: Other ( contractions) NST Procedure: NST Procedure Start Time 15:01 Stop Time 15:37 Service Date of procedure: 12/13/23 Findings: Reactive, Cat 1. [place] quiet. - Plan Plan: Ela is a 23 yo at 35w1d with complicated by pre-gestational diabetes, obesity, who presents to triage for cramping. She reports very mild constant cramping, 2/10 as well as intermittent stronger pains in her pelvis and buttocks, occurring irregularly, ~ 5x per hour. However, during her triage stay, denies any further painful contractions. Denies LOF, VB. + FM. Denies dysuria. + urinary frequency which is not new. She reports having had a zoom appointment with [facility] yesterday with plans to start insulin, needs to potato picker from pharmacy. Plan: [place] quiet during period of monitoring on L&D and no contractions noted on toco. No further painful contractions reported by Ela. I offered SVE, but she declines. UA sent, pending. Will order urine culture if indicated. Low suspicion for UTI. She is comfortable with plan for discharge home and will follow up as scheduled tomorrow for next routine visit.
[2023-12-13 13:17] LABS: BILIRUBIN,URINE NEGATIVE (NEGATIVE); GLUCOSE, URINE (UA) NEGATIVE (NEGATIVE); KETONES,URINE (UA) NEGATIVE (NEGATIVE); LEUKOCYTE ESTERASE, URINE SMALL (NEGATIVE); NITRITE,URINE NEGATIVE (NEGATIVE); OCCULT BLOOD,URINE NEGATIVE (NEGATIVE); PROTEIN,URINE NEGATIVE (NEGATIVE); UROBILINOGEN,URINE 0.2 (NORMAL) E.U./dL (NORMAL)
[2023-12-13 13:25] VITALS: BP 104/86
[2023-12-13 13:35] LABS: BACTERIA,URINE Rare /HPF (None Seen); CLARITY,URINE CLEAR (CLEAR); RBC,URINE 0-5 /HPF (0-5); SQUAMOUS EPITHELIAL CELL,UR MOD Squamous (<= Few)
== END 2023-12-13 13:11 | disposition home or self-care (01) ==
LOC: WFO 12:10 → FBP 12:11 → WFO 13:11
PROVIDERS: ATTEND Obstetrics & Gynecology
DX: O99.891 Other specified diseases and conditions complicating pregnancy (principal); R10.9 Unspecified abdominal pain; O24.113 Pre-existing type 2 diabetes mellitus, in pregnancy, third trimester; O99.213 Obesity complicating pregnancy, third trimester; Z3A.35 35 weeks gestation of pregnancy
CPT/HCPCS: 59025; 81001; 99215

== ENCOUNTER 2023-12-21 15:54 | Outpatient (CLI) | payer MEDICAID | END 2023-12-21 15:55 | disposition home or self-care (01) | LOC: LAB.WC 15:54 | PROVIDERS: ATTEND Obstetrics & Gynecology | DX: Z36.85 Encounter for antenatal screening for Streptococcus B (principal) | CPT/HCPCS: 87797 ==

== ENCOUNTER 2024-01-02 07:55 | Inpatient (IN) | payer MEDICAID ==
[2024-01-02 09:15] LABS: BASOPHILS % (AUTO) 0.3 %; EOSINOPHILS # (AUTO) 0.1 10^3/uL (0.0-0.7); EOSINOPHILS % (AUTO) 0.9 %; HCT - HEMATOCRIT 33.1 % (37.0-47.0); HGB - HEMOGLOBIN 10.6 g/dL (12.0-16.0); LYMPHOCYTES # (AUTO) 2.4 10^3/uL (1.5-3.5); LYMPHOCYTES % (AUTO) 21.5 %; MEAN CORPUSCULAR HEMOGLOBIN 27.1 pg (27.0-31.0); MEAN CORPUSCULAR VOLUME 84.7 fL (81.0-99.0); MEAN PLATELET VOLUME 11.7 fL (7.9-10.8); MONOCYTES # (AUTO) 0.9 10^3/uL (0.0-1.0); MONOCYTES % (AUTO) 8.3 %; NEUTROPHILS # (AUTO) 7.6 10^3/uL (1.5-6.6); NEUTROPHILS % (AUTO) 68.5 %; PLT - PLATELET COUNT 245 10^3/uL (130-450); RED BLOOD COUNT 3.91 10^6/uL (4.20-5.40); RED CELL DISTRIBUTION WIDTH 14.1 % (12.0-15.0); WHITE BLOOD COUNT 11.1 x10^3/uL (4.8-10.8)
[2024-01-02 09:30] LABS: ALBUMIN 3.5 g/dL (3.2-5.5); ALBUMIN/GLOBULIN RATIO 1.2 (1.0-2.2); BILIRUBIN,TOTAL 0.2 mg/dL (0.2-1.0); CALCIUM 9.3 mg/dL (8.5-10.3); CREATININE 0.7 mg/dL (0.6-1.3); POTASSIUM 3.9 mmol/L (3.5-4.5); TOTAL PROTEIN 6.4 g/dL (6.4-8.9)
--- NOTE | 2024-01-02 09:44 | HISTORY & PHYSICAL EXAMINATION ---
Admit History - Visit Reason Visit Reason: Other (IOL) - : 2 Parity: 1 Care: positive: [facility] Risk/History: positive: Gestational diabetes (T2DM vs GDM) Complications This : positive: Gestational diabetes Smoking Status: Former smoker - Mother's Labs Mother's Blood Type: positive: A Mother's RH: positive: Positive GBS: positive: Group B Step Negative Rubella Status: positive: Immune - Other Maternal History Other Maternal History: Med: T2DM vs GDM, anxiety, asthma Surg: Tonsillectomy Social: denies crispin Fam: asthma, anxiety, mgm br ca - HPI Diagnosis/Indication for NST: Gestational Diabetes Current EDU 01/16/24 Gestation 38 Weeks and 0 Days 2 Vital Signs Temperature 210.0 F H 01/02/24 09:12 Heart Rate 98 01/02/24 09:12 Respiratory Rate 16 01/02/24 09:12 Blood Pressure 137/83 H 01/02/24 09:12 Temperature 210.0 F H 01/02/24 09:12 Heart Rate 98 01/02/24 09:12 Respiratory Rate 16 01/02/24 09:12 Blood Pressure 137/83 H 01/02/24 09:12 O2 Saturation If not protocol: Oxygen Flow, liters/minute - NST Procedure NST Procedure Start Time 12:17 Stop Time 12:59 - Results and Plan Plan: Direct admission for IOL Meds/Allgy - Home Medications Home Medications: Ambulatory Orders Medication Instructions Recorded Confirmed metFORMIN [Glucophage] 500 mg PO BIDWM 08/27/23 08/27/23 - Allergies Allergies/Adverse Reactions: Allergies Allergy/AdvReac Type Severity Reaction Status Date / Time No Known Drug Allergies Allergy Verified 08/27/23 19:07 Physical - Abdominal Exam Vital Signs: Temp Pulse Resp BP Pulse Ox O2 Flow Rate 210.0 F H 98 16 137/83 H 01/02/24 09:12 01/02/24 09:12 01/02/24 09:12 01/02/24 09:12 Contraction Frequency (min/apart): None Contraction Intensity: positive: Mild Uterine Resting Tone: positive: Soft - Monitoring Heart Rate Baseline: 140 Strip Review: positive: Category I - Presentation Presentation: positive: Vertex (Placenta posterior, EFW 4200g) - Vaginal Exam Membranes: positive: Membranes intact Dilation (in cm): 3 Effacement (%): 50 Station: positive: -3 Cervical Position: positive: Midposition Plan for Labor - Plan For Labor I expect patient to be DC'd or transferred within 96 hours.: Yes Plan for Labor: 23yo at 38w by 7w US admitted for IOL for GDM - Admit for IOL - 3cm, start Pitocin IOL, GBS neg - Metformin 1000mg BID, check glucose q2h - Consent previously signed, reviewed risks of labor and shoulder dystocia.
[2024-01-02] MEDS ORDERED: OXYTOCIN/SODIUM CHLORIDE 500 ML IV PRN (10:03)
[2024-01-02] MEDS ORDERED: NIFEdipine 10 MG CAPSULE PO PRN (10:03)
[2024-01-02] MEDS ORDERED: TRANEXAMIC ACID IN NACL 1,000 MG/100 ML BAG IV PRN (10:03)
[2024-01-02] MEDS ORDERED: OXYTOCIN 10 UNIT/ML VIAL IM PRN (10:03)
[2024-01-02] MEDS ORDERED: hydrALAZINE INJ 20 MG/ML VIAL IVP PRN ×2 (10:03)
[2024-01-02] MEDS ORDERED: TERBUTALINE 1 MG/ML VIAL SUBQ PRN (10:03)
[2024-01-02] MEDS ORDERED: lidocaine 1% 20 ML MDV ID PRN (10:03)
[2024-01-02] MEDS ORDERED: fentaNYL 100 MCG/2 ML VIAL IVP PRN (10:03)
[2024-01-02] MEDS ORDERED: miSOPROStoL 200 MCG TABLET BC PRN (10:03)
[2024-01-02] MEDS ORDERED: SODIUM CHLORIDE FLUSH 0.9% 10 ML SYRINGE IVP PRN (10:03)
[2024-01-02] MEDS ORDERED: miSOPROStoL 200 MCG TABLET PR PRN (10:03)
[2024-01-02] MEDS ORDERED: LABETALOL 20 MG/4 ML SYRINGE IVP PRN ×3 (10:03)
[2024-01-02] MEDS ORDERED: CARBOPROST TROMETHAMINE 250 MCG/ML VIAL IM PRN (10:03)
[2024-01-02] MEDS ORDERED: METHYLERGONOVINE 0.2 MG/ML VIAL IM PRN (10:03)
[2024-01-02] MEDS: OXYTOCIN/SODIUM CHLORIDE 500 ML IV SCH (10:22)
[2024-01-02] MEDS: LACTATED RINGERS 1,000 ML IV PRN (10:22)
[2024-01-02] MEDS: metFORMIN 500 MG TABLET PO SCH (10:30)
[2024-01-02] MEDS ORDERED: SODIUM CHLORIDE FLUSH 0.9% 10 ML SYRINGE IVP SCH (11:00)
--- NOTE | 2024-01-02 12:53 | PHARMACY PROGRESS NOTE ---
- Best Possible Medication History Admit Date and Time: 01/02/24 1006 Processed by: Pharmacy Medications reviewed in ED?: No Medication History completed: Yes Patient Interview: Pt unable to participate Secondary Source(s): Insurance records As the person ultimately responsible for medication therapy, providers are able to order a medication from an existing home medication list in [facility] via the "Reconcile Routine" prior to Confirmation of that medication by senior administrative support. Such practice is discouraged except when the physician, in their clinical judgment, deems that a medical need exists for a medication without regard to previous use.
--- NOTE | 2024-01-02 13:07 | PROVIDER PROGRESS NOTE ---
<Mary Smith - Last Filed: 01/02/24 13:21> Labor Progress Note - Uterine Monitoring Uterine Monitoring Mode: positive: External toco : 2-3.5 Contraction Intensity: positive: Mild to moderate - Monitoring Monitor Mode: positive: External ultrasound Heart Rate Baseline: 135 Heart Rate Variability: positive: Moderate (6-25 bmp) Accelerations: positive: Present, 15x15 Strip Review: positive: Category I - Vaginal Exam Dilation (in cm): 5 Effacement (%): 70 Station: -2 Cervical Position: Midposition - Labor Progress Note Labor Progress Note/Additional Text: S: Semifowlers. No current pain managment. Increasing discomfort with contractions. Close to desiring epidural for pain management. Feeling significant pressure in her lower back during contractions. Has ambulated some. Coping well, understands situation after our discussions, feels well informed. O: FHR baseline 135, moderate variability, + accels, no recurrent decelerations EFM Overall reassuring with moderate variability maintained throughout. Breakfast 2hr pp glucose: 80. Did not take glargine last night (forgot) Contractions palpate mild intermittently with soft resting tone. SVE 5/70/-2, midposition. Vertex. AROM @ 1254, single variable deceleration with rapid return to baseline at time of AROM. Pitocin at 6mu/min A: 23yo @ 38+0 wks gestation Medical IOL for GDM A2 vs T2DM. BID metformin and Elective IOL. Current home diabetic management: Glargine 13u and metformin 1000mg BID FHR Category I GBS neg A+ P: Continue pitocin titration per protocol for adequate uterine contractions. Continuous monitoring. Epidural per maternal request. Reviewed plan of care with wright/ oncall physician Anticipate . CAROLE Espino, Student Nurse Battery Starter <Meliza Valdovinos - Last Filed: 01/02/24 17:55> Labor Progress Note - Labor Progress Note Labor Progress Note/Additional Text: Induction is not elective. being done for gestational diabetes with a baby who was close to macrosomic size on recent ultrasound. otherwise, agree with above.
--- NOTE | 2024-01-02 14:17 | ANESTHESIA ---
Pre-Anesthesia VS, & Labs - Diagnosis Active Labor - Procedure Vaginal Delivery Vital Signs: Temp Pulse Resp BP Pulse Ox O2 Flow Rate 98.9 C H 98 16 137/83 H 01/02/24 09:12 01/02/24 09:12 01/02/24 09:12 01/02/24 09:12 Height: 5 ft 4 in Weight (kg): 132.903 kg Body Mass Index: 50.3 BMI Classification: Morbidly Obese - NPO Last Fluid Intake: clear liquid during labor - Is Patient ?: Yes - Lab Results Current Lab Results: Laboratory Tests 01/02/24 11:49: POC Whole Bld Glucose 80 01/02/24 08:50: Blood Type A POSITIVE, Antibody Screen NEGATIVE 01/02/24 08:50: Sodium 134 L, Potassium 3.9, Chloride 106, Carbon Dioxide 20 L, Anion Gap 8.0, BUN 11, Creatinine 0.7, Estimated GFR (MDRD) 104, Glucose 116 H, Calcium 9.3, Total Bilirubin 0.2, AST 17, ALT 9 L, Alkaline Phosphatase 106, Total Protein 6.4, Albumin 3.5, Globulin 2.9, Albumin/Globulin Ratio 1.2 01/02/24 08:50: WBC 11.1 H, RBC 3.91 L, Hgb 10.6 L, Hct 33.1 L, MCV 84.7, MCH 27.1, MCHC 32.0, RDW 14.1, Plt Count 245, MPV 11.7 H, Neut # (Auto) 7.6 H, Lymph # (Auto) 2.4, [place] # (Auto) 0.9, Eos # (Auto) 0.1, Baso # (Auto) 0.0, Absolute Nucleated RBC 0.00, Nucleated RBC % 0.0 Lab results reviewed: Yes Fish Bones: 01/02/24 08:50 01/02/24 08:50 Home Medications and Allergies Home Medications: Ambulatory Orders Escitalopram [Lexapro] 10 mg PO DAILY 01/02/24 Famotidine [Pepcid] 20 mg PO BID PRN 01/02/24 Insulin Glargine,Hum.rec.anlog [Basaglar Kwikpen U-100] 12 units SUBQ QPM 01/02/24 Metformin HCl 1,000 mg PO BIDWM 06/19/24 Active Medications Carboprost Tromethamine (Carboprost Tromethamine 250 Mcg/Ml Vial) 250 mcg IM .ONCE PRN PRN Reason: Hemorrhage Escitalopram Oxalate (Escitalopram 10 Mg Tablet) 10 mg PO HS ANISA Fentanyl (Fentanyl 100 Mcg/2 Ml Vial) 50 mcg IVP Q1H PRN PRN Reason: Severe Pain (score 7-10) Hydralazine HCl (Hydralazine Inj 20 Mg/Ml Vial) 5 - 10 mg IVP Q20M PRN; P rotocol PRN Reason: SBP> or= 160 OR DBP> or= 110 Hydralazine HCl (Hydralazine Inj 20 Mg/Ml Vial) 10 mg IVP .ONCE PRN; Protocol PRN Reason: SBP> or= 160 OR DBP> or= 110 Oxytocin/Sodium Chloride (Pitocin/Sodium Chloride) 500 mls @ 2 mls/hr IV TITR ANISA; Protocol Last Titration: 01/02/24 13:22 Dose: 10 milliunit/min, 10 mls/hr Lactated Ringer's (Lr) 500 mls @ 999 mls/hr IV PRN PRN PRN Reason: NEEDED PER PROVIDER ORDERS Last Admin: 01/02/24 10:22 Dose: 125 mls/hr Oxytocin/Sodium Chloride (Pitocin/Sodium Chloride) 500 mls @ 999 mls/hr IV PRN PRN; Protocol PRN Reason: POST- HEMORR PREVENTION Tranexamic Acid (Tranexamic 1,000 Mg/100ml-Nacl) 1,000 mg in 100 mls @ 600 mls/hr IV Q30M PRN PRN Reason: EBL >1200mL and within 3hr Labetalol HCl (Labetalol 20 Mg/4 Ml Syringe) 20 - 80 mg IVP Q10M PRN; Protocol PRN Reason: SBP> or= 160 OR DBP> or= 110 Labetalol HCl (Labetalol 20 Mg/4 Ml Syringe) 20 mg IVP .ONCE PRN; Protocol PRN Reason: SBP> or= 160 OR DBP> or= 110 Labetalol HCl (Labetalol 20 Mg/4 Ml Syringe) 20 - 40 mg IVP Q10M PRN; Protocol PRN Reason: SBP> or= 160 OR DBP> or= 110 Lidocaine HCl (Lidocaine 1% 20 Ml Mdv) 20 ml ID .ONCE PRN PRN Reason: PERINEAL REPAIR Stop: 01/05/24 10:06 Metformin HCl (Metformin 500 Mg Tablet) 1,000 mg PO BIDWM [facility] Last Admin: 01/02/24 10:30 Dose: 1,000 mg Methylergonovine Maleate (Methylergonovine 0.2 Mg/Ml Vial) 0.2 mg IM .ONCE PRN PRN Reason: Hemorrhage Misoprostol (Misoprostol 200 Mcg Tablet) 600 mcg BC .ONCE PRN PRN Reason: Hemorrhage Misoprostol (Misoprostol 200 Mcg Tablet) 800 mcg AK .ONCE PRN PRN Reason: Hemorrhage Nifedipine (Nifedipine 10 Mg Capsule) 10 - 20 mg PO Q20M PRN; Protocol PRN Reason: SBP> or= 160 OR DBP> or= 110 Oxytocin (Oxytocin 10 Unit/Ml Vial) 10 unit IM .ONCE PRN PRN Reason: Step One if no IV access. Sodium Chloride (Sodium Chloride Flush 0.9% 10 Ml Syringe) 10 ml IVP PRN PRN PRN Reason: NEEDED PER PROVIDER ORDERS Sodium Chloride (Sodium Chloride Flush 0.9% 10 Ml Syringe) 10 ml IVP Q8H [facility] Terbutaline Sulfate (Terbutaline 1 Mg/Ml Vial) 0.25 mg SUBQ .ONCE PRN PRN Reason: Tachystole Escitalopram [Lexapro] 10 mg PO DAILY 01/02/24 Famotidine [Pepcid] 20 mg PO BID PRN 01/02/24 Insulin Glargine,Hum.rec.anlog [Basaglar Kwikpen U-100] 12 units SUBQ QPM 01/02/24 Metformin HCl 1,000 mg PO BIDWM 01/02/24 Allergies/Adverse Reactions: Allergies Allergy/AdvReac Type Severity Reaction Status Date / Time No Known Drug Allergies Allergy Verified 08/27/23 19:07 Anes History & Medical History - Anesthetic History Anesthesia Complications: reports: No previous complications Family history of Anesthesia Complications: Denies Family history of Malignant Hyperthermia: Denies - Medical History Cardiovascular: reports: None Pulmonary: reports: None Gastrointestinal: reports: GERD (during ) Urinary: reports: None Neuro: reports: None Musculoskeletal: reports: None Endocrine/Autoimmune: reports: Other (GDM) Blood Disorders: reports: None Skin: reports: None Smoking Status: Former smoker Psychosocial: reports: No issues indicated History of Cancer?: No - Surgical History Eyes Ears Nose Throat (EENT): reports: Tonsil/Adenoidectomy - Obstetrical History : 2 Parity: 1 Events: reports: Gestational diabetes (T2DM vs GDM) Complications: reports: Gestational diabetes Exam General: Alert, Oriented x3, Cooperative, No acute distress Dental: WNL Mouth Openin Fingerbreadth Neck Mobility: Normal Mallampati classification: II Thyromental Distance: 4-6 cm Mental/Cognitive Status: Alert/Oriented X3, Normal for patient Cognitive Status: Within normal limits Plan Anesthesia Type: Epidural Consent for Procedure(s) Verified and Reviewed: Yes Code Status: Attempt Resuscitation ASA classification: 3-Severe systemic disease Is this case an emergency?: No
[2024-01-02] MEDS ORDERED: ePHEDrine 50 MG/ML VIAL IVP PRN (14:18)
[2024-01-02] MEDS ORDERED: ROPIVACAINE 0.2% 200 MG/100 ML BAG EP PRN ×2 (14:18→17:02)
[2024-01-02] MEDS ORDERED: ONDANSETRON 4 MG/2 ML VIAL IVP PRN (14:18)
--- NOTE | 2024-01-02 17:02 | ANESTHESIA PROCEDURE NOTE ---
Anesthesia Epidural Template - Patient Report Patient Reports: positive: Inadequate control - Other Comments Other Comments: C/O pain with contractions, rates 10/10. L1 level. Epidural bolused with 10ml of 0.2% ropivicaine with 100mcg fentanyl and 8ml of PFNS. Added 6ml q 10 mins PCEA. After bolus, rates pain 5/10.
--- NOTE | 2024-01-02 18:00 | PROVIDER PROGRESS NOTE ---
Labor Progress Note - Uterine Monitoring Uterine Monitoring Mode: positive: External toco Contraction Frequency (min/apart): q3 Contraction Intensity: positive: Moderate Uterine Resting Tone: positive: Soft - Monitoring Monitor Mode: positive: External ultrasound Heart Rate Variability: positive: Moderate (6-25 bmp) Accelerations: positive: Present, 15x15 Decelerations: positive: Variable, Intermittent (<50% x20 min) Strip Review: positive: Category II - Vaginal Exam Dilation (in cm): 10 Station: 2 - Labor Progress Note Labor Progress Note/Additional Text: patient now pushing with contractions. huddle done with RNS to be ready for shoulder dystocia given possible macrosomia. baby is AUDRA towards transverse, maybe a bit asynclitic. pillow up under left hip to tilt her towards right. She felt more pressure with that. will continue pushing. hope for
--- NOTE | 2024-01-02 18:49 | DELIVERY NOTE ---
<Mary Smith - Last Filed: 01/02/24 18:46> Delivery Note - Labor Labor: positive: Induced by oxytocin - Delivery Method Infant Delivery Method: positive: Other - Presentation Presentation: positive: Vertex, ROMANA - left occiput anterior - Nuchal Cord Nuchal Cord: positive: None - Anesthetic Anesthetic Type: - Amniotic Fluid Description Amniotic Fluid Description: positive: Clear - Laceration Laceration: positive: None - Delivery Outcome Delivery Outcome: positive: Livebirth - [place]: positive: Placed in direct skin contact with mother, Suctioned, Bulb syringe, Stimulated, Warmed, [place] used, Warmer used sex: positive: Male - Cord Cord: positive: 3 vessels - Placenta Placenta: positive: Intact - Estimated Blood Loss Estimated Blood Loss (in cc): 200 - Post Delivery Events Post Delivery Events: positive: Shoulder dystocia - Delivery Comments (Free Text/Narrative) Delivery Comments (Free Text/Narrative): This 23 -year-old, G 2 P 1. @ 38+0 weeks gestation by 7+3 week ultrasound presented @ 0800 time for MEDICAL IOL for insulin dependent DM (T2DM vs GDM A2) and in good condition. Cervix was 3/50/-3 and Vertex presentation by exam. Hinojosa score 7. GBS NEG, treatment NOT indicated. OXYTOCIN maximum infusion rate of 16u/Min. FHR pattern demonstrated 135 baseline. Primarily Category I, but occasional episodes of category II tracing as labor progressed to second stage. Normal labor course. AROM occurred @ 1254. Epidural placed upon maternal request. She began pushing with a very small amount of anterior lip remaining @ 1720. She then progressed to complete/complete @ 1732 and ready to deliver. : Spontaneous delivery of head. The large body was not delivering despite gentle traction of the head. Milly position unsuccessful. I was able to place my fingers under the posterior axilla and deliver the posterior shoulder with gentle traction. The rest of the body delivered thereafter and was placed on mother's chest where he was stimulated and responded well. On exam, he had movement of bilateral upper extremities. We disc ussed the shoulder dystocia with the family. In total 30 seconds elapse for delivery of head to delivery of body and resolution of shoulder dystocia. Vaginal delivery of a viable male infant on 01/02/2024 @ 1808. No nuchal cord. The was placed on maternal abdomen, stimulated, pink in color but not yet crying. Brief evaluation at warmer than returned to Mother for skin to skin. Apgars 8 @1 min, and 9 @ 5 minutes. Pitocin administered via IV for hemostasis. The umbilical cord was allowed to stop pulsating at which time it was doubly clamped by delivering provider and cut by FOB. 3VC. Cord blood was obtained. THIRD STAGE: Fundal massage and gently cord traction applied for active management of the third stage, placenta delivered spontaneously and intact @ 1812 time. EBL 200. Placenta was WAS NOT sent to pathology. Thirty units of Pitocin were added to the IV fluid and allowed to run freely. Uterine massage was performed until uterus was deemed firm. FOURTH STAGE: Uterine fundus firm and there is no excessive bleeding. Perineum, vagina and cervix were inspected and found to be intact. Uterus again massaged and found to be firm. Needle and sponge counts were correct. Skin to skin initiated. Family bonding well. Both mother and baby are in stable condition. CAROLE Espino, Student Nurse Foot Worker <Meliza Valdovinos - Last Filed: 01/02/24 20:59> Delivery Note - Delivery Comments (Free Text/Narrative) Delivery Comments (Free Text/Narrative): Reviewed and was present for the delivery with [employer] student.
[2024-01-02] MEDS: DOCUSATE SODIUM 100 MG CAPSULE PO SCH (20:53)
[2024-01-02] MEDS: IBUPROFEN 800 MG TABLET PO SCH (20:53)
[2024-01-02] MEDS: ACETAMINOPHEN 500 MG TABLET PO SCH (20:53)
[2024-01-02] MEDS ORDERED: ESCITALOPRAM 10 MG TABLET PO SCH (21:00)
[2024-01-03 02:33] VITALS: O2SAT 98
[2024-01-03 06:35] LABS: BASOPHILS % (AUTO) 0.3 %; EOSINOPHILS # (AUTO) 0.1 10^3/uL (0.0-0.7); EOSINOPHILS % (AUTO) 0.8 %; HGB - HEMOGLOBIN 10.3 g/dL (12.0-16.0); LYMPHOCYTES # (AUTO) 2.4 10^3/uL (1.5-3.5); LYMPHOCYTES % (AUTO) 18.8 %; MEAN CORPUSCULAR HEMOGLOBIN 27.4 pg (27.0-31.0); MEAN CORPUSCULAR HGB CONC 32.2 g/dL (32.0-36.0); MEAN CORPUSCULAR VOLUME 85.1 fL (81.0-99.0); MEAN PLATELET VOLUME 11.5 fL (7.9-10.8); NEUTROPHILS # (AUTO) 9.2 10^3/uL (1.5-6.6); NEUTROPHILS % (AUTO) 71.6 %; PLT - PLATELET COUNT 217 10^3/uL (130-450); RED BLOOD COUNT 3.76 10^6/uL (4.20-5.40); RED CELL DISTRIBUTION WIDTH 14.2 % (12.0-15.0); WHITE BLOOD COUNT 12.9 x10^3/uL (4.8-10.8)
[2024-01-03] MEDS: ESCITALOPRAM 10 MG TABLET PO SCH (08:52)
[2024-01-03 09:21] LABS: ESTIMATED AVERAGE GLUCOSE 114 mg/dL (70-100); HEMOGLOBIN A1c% 5.6 % (4.27-6.07)
--- NOTE | 2024-01-03 12:21 | Discharge Plan ---
Discharge Plan Problem Reviewed?: Yes Disposition: Home, Self Care Condition: Good Diet: Regular Activity Restrictions: No Restrictions Weight Bearing: Full Weight Instruction Topics: Self Care, Breastfeed Holds, Vaginal No Smoking: If you smoke, Please STOP! Call for help. Follow-up with: Rebecca Walton PA-C [Primary Care Provider] -
--- NOTE | 2024-01-03 12:31 | DISCHARGE SUMMARY ---
Discharge Summary Admit Date: 01/02/24 Discharge Date: 01/03/24 Discharging Provider: ELVIS Smith, Dr. Bruno Velasquez Code Status: Attempt Resuscitation Condition at Discharge: Good Discharge Disposition: 01 Home, Self Care - HPI History of Present Illness: Date of Admission 01/02/2024 Date of Discharge 01/03/2024 Diagnosis on admission: 1. 23 yo @ 38+0 weeks gestation 2. Medical induction of labor for DM (GDM A2 vs T2DM) on long acting insulin and metformin 3. GBS negative 4. RH + Diagnosis on Discharge 1. PP day 1 s/p vaginal delivery 2. Intact perineum 3. Brief History: She is a patient of [facility] who presented on 01/02/2024 for medical induction of labor at 38+0 weeks gestation. Method of induction: pitocin. Normal labor course. Epidural for pain managment. She delivered a viable female infant apgars 8 and 9 at 1 and 5 minutes respectively after a 30 second shoulder dystocia. EBL 250 ml. intact perineum. She has been doing well in her course. She is ambulating and tolerating a regular diet. She is urinating without difficulty and her lochia is normal. Her pain is well controlled without narcotic management. She will be discharged to home today on day 1 and encouraged her to bean picker OTC tylenol, IBU and colace. She intends to follow up with [facility] in one week. Preferred in person appointment vs telehealth. She has been given precautions to call if she has any worsening symptoms such as fevers, chills, abdominal pain, increasing bleeding, or foul smelling vaginal lochia. CAROLE Espino, Student Nurse Mat Cutter - ALLERGIES Allergies/Adverse Reactions: Allergies Allergy/AdvReac Type Severity Reaction Status Date / Time No Known Drug Allergies Allergy Verified 08/27/23 19:07 - MEDICATIONS Home Medications: Ambulatory Orders Medication Instructions Recorded Confirmed Escitalopram [Lexapro] 10 mg PO DAILY 01/02/24 01/02/24 Famotidine [Pepcid] 20 mg PO BID PRN 01/02/24 01/02/24 Insulin Glargine,Hum.rec.anlog 12 units SUBQ QPM 01/02/24 01/02/24 [Kristin Mukherjee U-100] Metformin HCl 1,000 mg PO BIDWM 01/02/24 01/02/24 - PHYSICAL EXAM AT DISCHARGE General Appearance: positive: No acute distress, Alert Eyes Bilateral: positive: Normal inspection Neck: positive: Nml inspection Abdomen: positive: Non-tender Skin: positive: Color nml Extremities: positive: Non-tender Neurologic/Psychiatric: positive: Oriented x3, Motor nml, Sensation nml, Mood/affect nml - LABS Result Diagrams: 01/03/24 06:25 01/02/24 08:50 - QUALITY (Female Hip Fx Only) Was patient sent home on osteoporosis medication?: No - FOLLOW UP Follow Up: [address] [facility]. - TIME SPENT Time Spent in Discharge (Minutes): 20
[2024-01-03 16:46] VITALS: BP 112/98
--- NOTE | 2024-01-03 21:20 | Labor Flowsheet ---
Labor Flowsheet Datetime Report Generated by CPN: 01/03/2024 21:20 Datetime: 01/03/2024 16:33 VITAL SIGNS NBP Sys/Svetlana/Mean (mmHg): 142 : 98 : 108 Pulse: 99 Datetime: 01/03/2024 02:20 SpO2 (%): 98 Datetime: 01/02/2024 20:16 Respirations: 18 PAIN Pain Scale: 3 Datetime: 01/02/2024 19:44 Membranes Ruptured Date/Time: 01/02/2024 12:54 Datetime: 01/02/2024 19:31 Temperature (C): 36.6 Datetime: 01/02/2024 19:16 Temperature Route: Oral Pain Presence: Intermittent Pain Type: Cramping Pain Location: Abdomen Datetime: 01/02/2024 18:15 Pain Goal: 4 Pain Relief Measures: Comfort Measures (Annotations: PRN pain medications due to start ) Datetime: 01/02/2024 18:13 Patient Care Comments: Delivery of placenta Datetime: 01/02/2024 18:01 LaborFlag: Labor Datetime: 01/02/2024 18:00 FHR Baseline Rate : 135 Variability: Moderate 6-25 bpm Accelerations: 15X15 Decelerations: Early; Variable Datetime: 01/02/2024 17:55 COMMUNICATION Communication: RN Reviewed Strip Datetime: 01/02/2024 17:32 VAGINAL EXAM Dilatation (cm): 10.0 Effacement (%): 100 Station: 1 Exam by: CAROLE Harman Datetime: 01/02/2024 17:18 I/O Interventions: Blum Discontinued Datetime: 01/02/2024 17:13 Vaginal Bleeding: Normal Show Vaginal Exam Comments: Practice push performed, anterior lip reducable Datetime: 01/02/2024 17:00 Frequency (min): 2-2.5 Duration (sec): 50-70 Pattern: Normal: <= 5 Contractions in 10 Minutes Pitocin Checklist: At Least 1 Acceleration of 15 bpm x 15 Seconds in 30 Minutes or Adequate Variabi lity; No More than 1 Late Deceleration Occurred in Past 30 Minutes; No More than 2 Variable Decelerat ions > 60 Seconds in Duration and decreasing >60 bpm in 30 minutes; No More than 5 Uterine Contractio ns in 10 Minutes for any 20 Minute Interval; Uterus Palpates Soft between Contractions; IUPC Resting Tone less than 25 mmHg ASSESSMENT A Monitor Mode: Telemetry Datetime: 01/02/2024 16:25 Cervix, Consistency: Soft Cervix, Position: Anterior Datetime: 01/02/2024 16:21 Patient Position/Activity: Right Lateral Datetime: 01/02/2024 15:40 Monitor Interventions for UA: [place] Adjusted Monitor Interventions for FHR: Ultrasound Adjusted MEDICATIONS Pitocin (milliunits): Increased to @ 16 Datetime: 01/02/2024 14:55 Communication Comments: K. Burckhardt, HISTOTECHNICIAN updated on SVE. Provider discussed placement of IUPC, p atient declines at this time. Datetime: 01/02/2024 14:30 Category: Category I Datetime: 01/02/2024 14:02 Epidural Procedure: Test Dose Datetime: 01/02/2024 14:00 Contraction Comments: patient sitting up for epidural Datetime: 01/02/2024 13:55 ANESTHESIA Epidural Positioning: Sitting Datetime: 01/02/2024 13:51 PROCEDURE TIME OUT Procedure Verify: Correct Patient Identity; Accurate Procedure Consent Form; Agreement on Procedure to be Done; Correct Patient Position; Addressed Need to Administer Antibiotics or Fluids for Irrigat ion; Safety Precautions Based on Patient History or Medication Use Anesthesia Comments: Keyla and Vijay Tavon here to place epidural Datetime: 01/02/2024 13:37 PATIENT CARE IV/Blood Work: IV Bolus Started Datetime: 01/02/2024 13:22 Pain Coping: Breathing Through Contractions; Requesting Pain Medication or Epidural Pain Assessment Comments: pateint request epidural Datetime: 01/02/2024 12:55 Stage of : Labor Datetime: 01/02/2024 12:54 Membrane Status: Ruptured Membranes Rupture Method: Artificial Amniotic Fluid Color: Clear Amniotic Fluid Amount: Small Amniotic Fluid Odor: None Datetime: 01/02/2024 12:30 UTERINE ACTIVITY Monitor Mode: External Quality: Mild Resting Tone (Palpate): Relaxed
== END 2024-01-03 19:45 | disposition home or self-care (01) | DRG 807 ==
LOC: WFO 07:55 → FBP 07:58 → WFO 10:05 → FBP 10:06
PROVIDERS: ADMIT Obstetrics & Gynecology; ATTEND Obstetrics & Gynecology
PROC: 10907ZC Drainage of Amniotic Fluid, Therapeutic from Products of Conception, Via Natural or Artificial Opening (ICD-10-PCS; principal; 2024-01-02)
PROC: 10E0XZZ Delivery of Products of Conception, External Approach (ICD-10-PCS; 2024-01-02)
PROC: 3E033VJ Introduction of Other Hormone into Peripheral Vein, Percutaneous Approach (ICD-10-PCS; 2024-01-02)
DX: O24.424 Gestational diabetes mellitus in childbirth, insulin controlled (principal); Z37.0 Single live birth; O66.0 Obstructed labor due to shoulder dystocia; Z3A.38 38 weeks gestation of pregnancy; O99.214 Obesity complicating childbirth; E66.01 Morbid (severe) obesity due to excess calories; Z87.891 Personal history of nicotine dependence
CPT/HCPCS: 36415; 59409; 80053; 83036; 85025; 86850; 86900; 86901; A9270; J7120